=== PATIENT | female | born 1965 | race Caucasian/White ===

== ENCOUNTER 2016-11-22 09:37 | Outpatient (CLI) | payer BC ==
--- NOTE | 2016-11-22 10:52 | XRay Report ---
CHEST 2 VIEWS INDICATION: Chest pain, acute upper respiratory infection. COMPARISON: None similar. FINDINGS: PA and lateral chest radiographs demonstrate normal cardiomediastinal silhouette. Slightly limited inspiration with grossly clear lungs. Intact bones. CONCLUSION: No acute disease in the chest. Thank you for the opportunity to participate in this patient's care.
--- NOTE | 2016-11-25 08:29 | Ultrasound Report ---
BILATERAL DIGITAL DIAGNOSTIC MAMMOGRAM with CAD: 11/22/16 09:37:00 CLINICAL: This patient presented with a screening mammogram order. Although she reported no lump in her breast, she did describe a lump in her right axilla. COMPARISON:01/08/13 FINDINGS: The breasts are heterogeneously dense, which may obscure small masses.No mass, architectural distortion or suspicious calcifications. Ultrasound of the right breast (including all four quadrants and the retroareolar area) was performed and demonstrated a few small cysts and no solid mass. A cyst at 1 o'clock 5 cm from the nipple measures 6 x 6 x 4 mm. A cyst at 2 o'clock 2 cm from the nipple measures 5 x 3 x 5 mm. A complex cyst versus intramammary lymph node at 6 o'clock 3 cm from the nipple measures 5 x 2 x 7 mm. Cysts at 7 o'clock 1 cm from the nipple measure 4 x 3 x 2 mm and 3 x 4 x 4 mm. A cyst at 8 o'clock 8 cm from the nipple measures 4 x 3 x 5 mm. An intramammary lymph node o'clock 4 cm from the nipple measures 10 x 3 x 5 mm. A cyst at 10 o'clock 4 cm from the nipple measures 5 x 3 x 5 mm. A retroareolar cyst with internal echoes measures 4 x 4 by 5 mm. Ultrasound of the right axilla demonstrated an abnormal lymph node with a central fat. It measures 1.9 x 1.8 x 2.1 cm. it correlates with the palpable finding in the right axilla. IMPRESSION: A suspicious enlarged right axillary lymph node. Benign cysts of the right breast and no solid right breast mass identified. BI-RADS CATEGORY: 4--Suspicious RECOMMENDATION: Ultrasound guided needle biopsy of the abnormal right axillary lymph node. ACR BI-RADS MAMMOGRAPHIC CODES: 0 = Needs additional imaging evaluation; 1 = Negative; 2 = Benign; 3 = Probably benign; 4 = Suspicious; 5 = Malignant; 6 = Known biopsy-proven malignancy COMMENT: 1. Dense breast tissue, i.e., adenosis, fibrocystic changes, etc., may obscure an underlying neoplasm. 2. Approximately 10% of cancers are not detected with mammography. 3. A negative mammography report should not delay biopsy if a clinically suspicious mass is present. COMMENT: Patient follow-up letters are generated by our [employer] application.
== END 2016-11-22 09:38 | disposition home or self-care (01) ==
LOC: MAMMO 09:37
PROVIDERS: ATTEND Internal Medicine
DX: N60.01 Solitary cyst of right breast (principal); J06.9 Acute upper respiratory infection, unspecified; R07.9 Chest pain, unspecified
CPT/HCPCS: 71020; 76641; G0204; 77066

== ENCOUNTER 2017-02-10 12:24 | Outpatient (CLI) | payer BC ==
--- NOTE | 2017-02-11 13:08 | Ultrasound Report ---
RIGHT BREAST ULTRASOUND: 02/10/17 12:24:00 CLINICAL: Followup of an enlarged tender right axillary lymph node. The patient has been treated with antibiotics and states that it is smaller and now nontender. COMPARISON: 11/22/16 FINDINGS: Ultrasound of the right axilla demonstrated a single lymph node which correlates with the previously described abnormal lymph node. It measures 1.4 x 0.9 x 1.4 cm compared to 1.9 x 1.8 x 2.1 cm on the last exam. No other abnormal lymph nodes. IMPRESSION: A smaller probably benign right axillary lymph node which has now become nontender. Recommend an additional six month followup with right axillary ultrasound. BI-RADS 3 - - Probably Benign RECOMMENDATION: Six month followup right axillary ultrasound.
== END 2017-02-10 12:25 | disposition home or self-care (01) ==
LOC: US 12:24
PROVIDERS: ATTEND Surgery
DX: R59.9 Enlarged lymph nodes, unspecified (principal); Z79.2 Long term (current) use of antibiotics

== ENCOUNTER 2017-05-09 10:53 | Outpatient (CLI) | payer BC ==
--- NOTE | 2017-05-09 14:44 | Ultrasound Report ---
RIGHT BREAST/AXILLARY ULTRASOUND: 05/09/17 10:53:00 CLINICAL: Followup right axillary lymph node. COMPARISON: 02/10/17 FINDINGS: Ultrasound of the right axilla demonstrated a stable lymph node to correlate with the previous described abnormal enlarged tender lymph node with no central fat.It measures 1.3 x 0.8 x 1.3 cm compared to 1.4 x 0.9 and a 1.4 cm on the last exam and 1.9 x 1.8 x 2.1 cm on an earlier ultrasound. A second lymph node in the right axilla has central fat and benign morphology and measures 1.7 x 0.8 x 1.1 cm. IMPRESSION: A stable benign reactive lymph node. It is significantly smaller and has a smoother contour than on 11/22/16. BI-RADS 2 - - Benign RECOMMENDATION: Clinical followup and return to routine screening mammography.
== END 2017-05-09 10:54 | disposition home or self-care (01) ==
LOC: US 10:53
PROVIDERS: ATTEND Surgery
DX: R59.9 Enlarged lymph nodes, unspecified (principal)

== ENCOUNTER 2018-02-14 16:07 | Outpatient (CLI) | payer BC ==
--- NOTE | 2018-02-14 17:46 | Vascular Lab Report ---
FINAL REPORT EXAM: VL VENOUS DUPLEX LE RT HISTORY: ACUTE EMBOLISM TECHNIQUE: Grayscale and color and spectral Doppler ultrasound imaging of the right lower extremity was performed for the purposes of assessing for deep venous thrombosis. PRIORS: None. FINDINGS: No evidence of deep venous thrombosis is seen within the right common femoral through the posterior t ibial and peroneal veins. Normal compression and color flow is seen throughout the venous system of t he right lower extremity. Normal augmentation was seen. IMPRESSION: Negative for right lower extremity deep venous thrombosis.
== END 2018-02-14 16:08 | disposition home or self-care (01) ==
LOC: VAS 16:07
PROVIDERS: ATTEND Internal Medicine
DX: I82.401 Acute embolism and thrombosis of unspecified deep veins of right lower extremity (principal)

== ENCOUNTER 2018-07-24 09:02 | Outpatient (CLI) | payer BC ==
[2018-07-24 10:53] LABS: Chol/HDL Ratio 4.82 %
[2018-07-27 10:02] LABS: Vitamin D, 25-OH, D2 6 ng/mL
== END 2018-07-24 09:03 | disposition home or self-care (01) ==
LOC: LAB 09:02
PROVIDERS: ATTEND Internal Medicine
DX: Z13.21 Encounter for screening for nutritional disorder (principal); E78.2 Mixed hyperlipidemia; R73.03 Prediabetes
CPT/HCPCS: 36415; 80061; 82306; 83036

== ENCOUNTER 2018-12-08 08:29 | Outpatient (CLI) | payer BC ==
[2018-12-08 11:32] LABS: Basophils % (Auto) 0.3 % (0.0-1.8); Eosinophils % (Auto) 0.5 % (0.0-4.3); Hematocrit 39.9 % (30.3-42.9); Lymphocytes # (Auto) 1.9 K/mm3 (1.2-5.4); Lymphocytes % (Auto) 38.3 % (13.4-35.0); Mean Corpuscular HGB Conc 33 % (30-34); Mean Corpuscular Volume 83 fl (79-97); Monocytes # (Auto) 0.5 K/mm3 (0.0-0.8); Monocytes % (Auto) 9.5 % (0.0-7.3); Platelet Count 155 K/mm3 (140-440); Red Cell Distribution Width 14.5 % (13.2-15.2)
[2018-12-08 11:46] LABS: Alanine Aminotransferase 27 units/L (7-56); Albumin 4.4 g/dL (3.9-5); BUN/Creatinine Ratio 28; Blood Urea Nitrogen 14 mg/dL (7-17); Calcium 8.9 mg/dL (8.4-10.2); Chol/HDL Ratio 5.52 %; HDL Cholesterol 25 mg/dL (40-59); Hemolysis Index 3; LDL Cholesterol,Direct 91 mg/dL (50-130)
[2018-12-13 10:06] LABS: Vitamin D, 25-OH, D2 28 ng/mL
== END 2018-12-08 08:30 | disposition home or self-care (01) ==
LOC: LAB 08:29
PROVIDERS: ATTEND Internal Medicine
DX: Z13.29 Encounter for screening for other suspected endocrine disorder (principal); E55.9 Vitamin D deficiency, unspecified; R73.03 Prediabetes; E78.2 Mixed hyperlipidemia; G50.1 Atypical facial pain
CPT/HCPCS: 36415; 80053; 80061; 82306; 82550; 82607; 83036; 84443; 85025

== ENCOUNTER 2019-01-22 10:02 | Outpatient (CLI) | payer BC ==
--- NOTE | 2019-01-22 12:46 | Ultrasound Report ---
Bilateral renal ultrasound. 01/22/2019. HISTORY: Flank pain. FINDINGS: Right kidney measures 13.2 x 4.5 cm. Cortex measures 1.7 cm. Left kidney measures 12.2 x 5.3 cm. Cortex measures 1.7 cm. Cortical echogenicity is normal. Negative for mass or obstruction. The left kidney contains a 3 mm no nobstructing stone at the lower pole. Incidentally noted are splenomegaly (14.2 cm) and large fatty liver. IMPRESSION: 1. Small nonobstructing left renal stone. 2. Large fatty liver. 3. Splenomegaly. Signer Name: Jad Bowen MD Signed: 01/22/2019 12:41 PM Workstation Name: [id number]
== END 2019-01-22 10:03 | disposition home or self-care (01) ==
LOC: US 10:02
PROVIDERS: ATTEND Internal Medicine
DX: N20.0 Calculus of kidney (principal); R16.1 Splenomegaly, not elsewhere classified; K76.0 Fatty (change of) liver, not elsewhere classified
CPT/HCPCS: 76770

== ENCOUNTER 2019-02-14 08:41 | Outpatient (CLI) | payer BC ==
--- NOTE | 2019-02-14 09:55 | Vascular Lab Report ---
DUPLEX DOPPLER LOWER EXTREMITY VEINS, RIGHT INDICATION: I82.491 ACUTE EMBOLISM AND THROMBOSIS OF OTHER SPECIFIED DEEP VEI. TECHNIQUE: Duplex doppler imaging was performed through the veins of the right lower extremity using venous compression and other maneuvers. COMPARISON: No relevant prior imaging study available. FINDINGS: Right Common femoral vein: Negative. Right Superficial femoral vein: Negative. Right Popliteal vein: Negative. Right Calf veins: Negative. Additional findings: None.. IMPRESSION: No sonographic evidence for DVT in the right lower extremity. Signer Name: Francisco J Leong Jr, MD Signed: 02/14/2019 9:51 AM Workstation Name: [id number]
== END 2019-02-14 08:42 | disposition home or self-care (01) ==
LOC: VAS 08:41
PROVIDERS: ATTEND Internal Medicine
DX: I82.491 Acute embolism and thrombosis of other specified deep vein of right lower extremity (principal)